=== PATIENT | male | born 1965 | race Caucasian/White ===

== ENCOUNTER 2021-04-08 22:29 | Emergency (ER) | payer OTHER ==
[~2021-04-08] VITALS: Ht 185.4 cm; Wt 110.0 kg
--- NOTE | 2021-04-08 23:39 | PHYS DOC ---
Past Medical History Additional Past Medical Histor: NARCOLEPSY Past Surgical History: No Surgical History General Adult EDM: Chief Complaint: Congestion HPI: HPI: Patient is a 56-year-old male who presents to the emergency for multiple complaints. Patient reports that he was Covid +6 weeks ago and developed Covid pneumonia, he was treated inpatient and discharged home. Patient reports that 3 days ago he started experiencing chest and nasal congestion, productive cough, nasal drainage, right rib pain and a sore throat. He reports that he is no longer experiencing the sore throat. Patient states he is using his incentive s pirometer at home. He denies fevers, shortness of breath, chest pain, sick exposures. Patient's vital signs are stable at this time. Review of Systems: Review of Systems: 14 body systems of the review of systems have been reviewed. See HPI for pertinent positive and negative responses, otherwise all other systems are negative, nonpertinent or noncontributory Heart Score: C/O Chest Pain: No HEART Score for Chest Pain: HEART Score for Chest Pain Response (Comments) Value History Slighlty/Non-Suspicious 0 ECG Normal 0 Age >45 - < 65 1 Risk Factors No Risk Factors 0 Troponin < Normal Limit 0 Total 1 Risk Factors: Risk Factors: DM, Current or recent (<one month) smoker, HTN, HLP, family history of CAD, obesity. Risk Scores: Score 0 - 3: 2.5% MACE over next 6 weeks - Discharge Home Score 4 - 6: 20.3% MACE over next 6 weeks - Admit for Clinical Observation Score 7 - 10: 72.7% MACE over next 6 weeks - Early Invasive Strategies Physical Exam: PE: Constitutional: Well developed, well nourished, no acute distress, non-toxic appearance. [] HENT: Normocephalic, atraumatic, bilateral external ears normal, oropharynx moist, no oral exudates, nose normal. [] Eyes: PERRL, EOMI, conjunctiva normal, no discharge. [] Neck: Normal range of motion, no stridor Cardiovascular:Heart rate regular rhythm, no murmur [] Lungs & Thorax: Wheezing noted throughout Abdomen: Bowel sounds normal, soft, no tenderness, no masses, no pulsatile masses. [] Skin: Warm, dry, no erythema, no rash. [] Back: No tenderness, normal range of motion Extremities: No tenderness, no cyanosis, no clubbing, ROM intact, no edema. [] Neurologic: Alert and oriented X 3, normal motor function, normal sensory function, no focal deficits noted. [] Psychologic: Affect normal, judgement normal, mood normal. [] Current Patient Data: Labs: Laboratory Tests Test 04/09/21 00:25 White Blood Count 5.0 x10^3/uL Red Blood Count 4.71 x10^6/uL Hemoglobin 14.8 g/dL Hematocrit 41.7 % Mean Corpuscular Volume 89 fL Mean Corpuscular Hemoglobin 32 pg Mean Corpuscular Hemoglobin Concent 36 g/dL Red Cell Distribution Width 14.0 % Platelet Count 225 x10^3/uL Neutrophils (%) (Auto) 64 % Lymphocytes (%) (Auto) 20 % Monocytes (%) (Auto) 12 % Eosinophils (%) (Auto) 3 % Basophils (%) (Auto) 1 % Neutrophils # (Auto) 3.2 x10^3/uL Lymphocytes # (Auto) 1.0 x10^3/uL Monocytes # (Auto) 0.6 x10^3/uL Eosinophils # (Auto) 0.2 x10^3/uL Basophils # (Auto) 0.0 x10^3/uL Sodium Level 140 mmol/L Potassium Level 3.8 mmol/L Chloride Level 105 mmol/L Carbon Dioxide Level 26 mmol/L Anion Gap 9 Blood Urea Nitrogen 19 mg/dL Creatinine 1.1 mg/dL Estimated GFR (Cockcroft-Gault) 68.8 BUN/Creatinine Ratio 17 Glucose Level 99 mg/dL Calcium Level 8.5 mg/dL Total Bilirubin 0.4 mg/dL Aspartate Amino Transf (AST/SGOT) 19 U/L Alanine Aminotransferase (ALT/SGPT) 38 U/L Alkaline Phosphatase 72 U/L Troponin I High Sensitivity 20 ng/L Total Protein 6.7 g/dL Albumin 3.5 g/dL Albumin/Globulin Ratio 1.1 Influenza Type A Antigen Negative Influenza Type B Antigen Negative Current Medications Medications (Trade) Dose Ordered Sig/Rashid Route PRN Reason Start Time Stop Time Status Last Admin Dose Admin Albuterol/ Ipratropium (Duoneb) 3 ml 1X ONCE NEB 04/09/21 01:00 04/09/21 01:01 DC Vital Signs: Vital Signs Date Time Temp Pulse Resp B/P (MAP) Pulse Ox O2 Delivery O2 Flow Rate FiO2 04/08/21 22:30 97.7 88 20 133/82 (99) 95 Room Air 97.7 EKG: EKG: EKG performed by ER staff at 0013 shows sinus rhythm with a heart rate of 82, QTc of 445, no STEMI read by Dr. Orosco at 0016 [] Radiology/Procedures: Radiology/Procedures: [] Course & Med Decision Making: Course & Med Decision Making Pertinent Labs and Imaging studies reviewed. (See chart for details) [] Patient presents emergency department for nasal congestion, chest congestion, nasal drainage, productive cough and right rib pain. Work-up in the ER consisted of blood work, EKG, chest x-ray. Patient is noted to have wheezing and therefore was given a breathing treatment in the ER. Patient's vital signs are stable, he is not requiring any oxygen and he is in no acute distress. Patient CBC is unremarkable. CMP unremarkable. Troponin unremarkable. Chest x-ray read by supervising physician shows no acute findings. Patient's influenza test was negative. Covid test is pending at this time and patient will be notified of those results when they become available in approximately 2 days, educated to self isolate. Patient was treated with breathing treatment. Patient's vital signs continue to be stable, he is not hypoxic and he is nonlabored. Patient will be discharged home advised to use symptomatic treatment, discharged home with Tessalon Perles for his cough and advised to take Mucinex for his nasal congestion. I discussed with patient all findings and diagnostic testing as well as the need to follow-up with PCP for further evaluation and treatment or return to the ER if any new or worsening symptoms. Strict return precautions were also discussed at length. Patient voiced understanding and agreement with the plan. Patient is hemodynamically stable at the time of disposition. Dragon Disclaimer: Dragon Disclaimer: This electronic medical record was generated, in whole or in part, using a voice recognition dictation system. Departure Departure Impression: Primary Impression: Cough Additional Impression: Person under investigation for COVID-19 Disposition: HOME / SELF CARE / HOMELESS Condition: GOOD Patient Instructions: Cough, Adult Additional Instructions: You were seen in the emergency department today for a productive cough, nasal congestion and drainage. Your work-up in the ER was unremarkable. Your chest x-ray did not show pneumonia. Your influenza test was negative. Your Covid test is pending and you will be notified of these results when they become available in approximately 2 days, please self isolate until you receive these results. For your fevers or body aches you can take Tylenol and ibuprofen. For your cough you are being discharged home with a medication called Sandra Pennington, use this as directed. For nasal congestion please use Mucinex. For wheezing or shortness of breath, you can use this albuterol inhaler as directed. Follow-up with your primary care provider tomorrow regarding your ER visit. Please return to the emergency department if you develop shortness of breath, high fevers refractory to treatment, chest pain, intractable nausea or vomiting, weakness or any new or worsening concerns. Scripts Albuterol Sulfate (Proair Hfa) 8.5 Gm Hfa.aer.ad 2 PUFF IH PRN Q4-6HRS PRN for wheezing for 21 Days, #1 INHALER 0 Refills Prov: GUSTAVO OLIVEIRA MERCHANDISE DELIVERER 04/09/21 Benzonatate (BENZONATATE) 200 Mg Capsule 1 CAP PO PRN TID PRN for cough for 7 Days, #21 CAP 0 Refills Prov: GUSTAVO OLIVEIRA MERCHANDISE DELIVERER 04/09/21 GUSTAVO OLIVEIRA MERCHANDISE DELIVERER Apr 08, 2021 23:39
[2021-04-09 00:39] LABS: BASO % 1 % (0-3); EOS # 0.2 x10^3/uL (0.0-0.7); EOS % 3 % (0-3); HEMATOCRIT 41.7 % (39.0-53.0); HEMOGLOBIN 14.8 g/dL (13.0-17.5); LYMPH % 20 % (24-48); MEAN CORPUSCULAR HEMOGLOBIN 32 pg (25-35); MEAN CORPUSCULAR HGB CONC 36 g/dL (31-37); MEAN CORPUSCULAR VOLUME 89 fL (79-100); MONO # 0.6 x10^3/uL (0.0-1.1); MONO % 12 % (0-9); NEUT # 3.2 x10^3/uL (1.8-7.7); NEUT % 64 % (31-73); PLATELET COUNT 225 x10^3/uL (140-400); RED BLOOD COUNT 4.71 x10^6/uL (4.30-5.70)
[2021-04-09 00:45] LABS: CALCIUM 8.5 mg/dL (8.5-10.1); CREATININE 1.1 mg/dL (0.7-1.3); GFR 68.8; POTASSIUM 3.8 mmol/L (3.5-5.1)
[2021-04-09 00:51] LABS: ALBUMIN 3.5 g/dL (3.4-5.0); ALBUMIN/GLOBULIN RATIO 1.1 (1.0-1.7); TOTAL BILIRUBIN 0.4 mg/dL (0.2-1.0); TOTAL PROTEIN 6.7 g/dL (6.4-8.2)
[2021-04-09 00:52] LABS: INFLUENZA A PATIENT NEGATIVE (NEGATIVE); INFLUENZA B PATIENT NEGATIVE (NEGATIVE)
[2021-04-09] MEDS ORDERED: IPRATRPIUM/ALBUTEROL 0.5/2.5MG 3 ML NEBU. NEB ONE (01:00)
[2021-04-09] MEDS ORDERED: BENZ200C47 PO (01:05)
[2021-04-09] MEDS ORDERED: ALBU2.5V8 IH (01:06)
[2021-04-09 01:36] VITALS: BP 127/69
--- NOTE | 2021-04-09 01:53 | RAD ---
EXAM: XR CHEST 1V 04/08/2021 11:52 PM CLINICAL INDICATION: Shortness of air, cough COMPARISON: None available TECHNIQUE: AP upright view of the chest FINDINGS: The heart and mediastinum are normal. Lungs are well-expanded and clear. No consolidatio n, pleural effusion, or pneumothorax. Pulmonary vascularity is normal. The thoracic skeleton is int act. IMPRESSION: Normal chest radiograph. Electronically signed by: Michelle Morales MD (04/09/2021 1:51 AM) [facility]
--- NOTE | 2021-04-09 03:18 | EKG ---
[facility] [address] [place] [address] Test Date: 2021-04-09 Test Time: 00:13:37 Pat Name: YANDY SIMON Department: Room: Gender: Parts Classifier: : [id number] Requested By: GUSTAVO OLIVEIRA Order Number: [id number] Reading MD: Frank Osborne MD Measurements Intervals [place] Rate: 82 P: 45 SD: 150 QRS: -36 QRSD: 98 T: 38 QT: 378 QTc: 445 Interpretive Statements SINUS RHYTHM Electronically Signed On 04-11-2021 20:54:31 CURLING MACHINE OPERATOR by Frank Osborne MD
--- NOTE | 2021-04-09 15:41 | NUR ---
IP: Attempted to contact pt concerning covid results. No answer, left a voicemail to return the call.
--- NOTE | 2021-04-12 12:20 | NUR ---
IP: Attempted to contact pt a second time concerning covid results. Again, no answer, left a second voicemail to return the call.
== END 2021-04-09 02:10 | disposition home or self-care (01) ==
LOC: ER 22:29
DX: R05.9 Cough, unspecified (principal); R09.81 Nasal congestion; R07.81 Pleurodynia; Z20.822 Contact with and (suspected) exposure to COVID-19
CPT/HCPCS: 36415; 71045; 80053; 84484; 85025; 87426; 87804; 93005; 94640; 99285; U0003; U0005